=== PATIENT | female | born 1985 | race Caucasian/White ===

== ENCOUNTER 2017-07-06 08:41 | Emergency (ER) | payer MEDICAID ==
[~2017-07-06] VITALS: Ht 162.6 cm; Wt 68.0 kg
[2017-07-06 08:44] VITALS: BP 125/83
--- NOTE | 2017-07-06 08:46 | NUR ---
PT AMBULATES TO BED 6
--- NOTE | 2017-07-06 08:50 | NUR ---
31Y/F BIB SELF C/O NVD, HEAD ACHE, ABDOMINAL PAIN SINCE YESTERDAY. SKIN IS PINK/WARM/DRY; AAOX4 WITH EVEN AND STEADY GAIT; PATIENT STATES PAIN OF 8/10 AT THIS TIME; VSS; PATIENT POSITIONED FOR COMFORT; HOB ELEVATED; BEDRAILS UP X1; BED DOWN. ER MD MADE AWARE OF PT STATUS.
[2017-07-06] MEDS ORDERED: ONDANSETRON 4 MG ODT SL PRN (09:55)
[2017-07-06] MEDS ORDERED: NACL 0.9% 1,000 ML IV SCH (09:55)
[2017-07-06] MEDS ORDERED: KETOROLAC 30 MG/ML VIAL IVP ONE (09:55)
[2017-07-06 10:56] LABS: BASOPHILS % (AUTO) 0.1 % (0.0-2.0); EOSINOPHILS % (AUTO) 0.1 % (0.0-4.0); HEMATOCRIT 38.1 % (36-48); HEMOGLOBIN 12.5 g/dL (12.0-16.0); LYMPHOCYTES # (AUTO) 0.6 K/uL (2.5-16.5); LYMPHOCYTES % (AUTO) 5.4 % (20.5-51.1); MEAN CORPUSCULAR HEMOGLOBIN 27 pg (27-31); MEAN CORPUSCULAR HGB CONC 33 g/dL (33-37); MEAN CORPUSCULAR VOLUME 83.8 fL (80-94); MONOCYTES # (AUTO) 0.2 K/uL (0.8-1.0); MONOCYTES % (AUTO) 2.1 % (1.7-9.3); NEUTROPHILS # (AUTO) 10.3 K/uL (1.8-7.7); NEUTROPHILS % (AUTO) 92.3 % (42.2-75.2); PLATELET COUNT (AUTO) 208 K/uL (140-450); RED BLOOD CELL COUNT(AUTO) 4.55 MIL/uL (4.20-5.40); RED CELL DISTRIBUTION WIDTH 12.7 % (11.6-13.7); WHITE BLOOD COUNT (AUTO) 11.1 K/uL (4.8-10.8)
[2017-07-06 10:57] LABS: APPEARANCE,URINE HAZY (CLEAR); BILIRUBIN,URINE NEGATIVE (NEGATIVE); BLOOD, URINE NEGATIVE (NEGATIVE); COLOR,URINE YELLOW (YELLOW); LEUKOCYTE ESTERASE ,URINE NEGATIVE (NEGATIVE); NITRITE, URINE NEGATIVE (NEGATIVE); PH,URINE >=9.0 (5.0-9.0); UGLUCOSE NEGATIVE (NEGATIVE)
[2017-07-06 12:35] LABS: ANION GAP 11.4 (8-16); CARBON DIOXIDE 25.3 mmol/L (21-32); CREATININE 0.7 mg/dL (0.6-1.3); POTASSIUM 3.7 mmol/L (3.5-5.1)
--- NOTE | 2017-07-06 12:44 | NUR ---
Patient discharged with v/s stable. Written and verbal after care instructions given and explained. Patient alert, oriented and verbalized understanding of instructions. Ambulatory with steady gait. All questions addressed prior to discharge. ID band removed. Patient advised to follow up with PMD. Rx of AZITHROMYCIN, ZOFRAN ODT, BENTYL given. Patient educated on indication of medication including possible reaction and side effects. Opportunity to ask questions provided and answered.
[2017-07-06 12:46] VITALS: BP 123/80
[2017-07-06 12:46] LABS: ALBUMIN 3.4 g/dL (3.4-5.0); TOTAL BILIRUBIN 0.3 mg/dL (0.0-1.0)
== END 2017-07-06 12:44 | disposition home or self-care (01) ==
LOC: MED 08:41
DX: K52.9 Noninfective gastroenteritis and colitis, unspecified (principal); Z88.0 Allergy status to penicillin
CPT/HCPCS: 36415; 74176; 80053; 81003; 81025; 83690; 85025; 96361; 96374; 99285; J1885; S0119